=== PATIENT | female | born 1985 | race African-American/Black ===

== ENCOUNTER 2016-06-25 06:06 | Emergency (ER) | payer BC, MEDICAID ==
[~2016-06-25 06:06] MED LIST: FERR325T PO; NYST100084 TOPICAL; PROP40TA3 PO; SUMA50TA2 PO
[2016-06-25 06:09] VITALS: BP 144/87; PULSE 62; RESP 14; TEMP 98.6; O2SAT 97
[2016-06-25] MEDS ORDERED: SODIUM CHLOR 0.9% 1000 ML INJ 1,000 ML IV ONE (06:32)
--- NOTE | 2016-06-25 06:39 | PD ---
HPI Chief Complaint: Headache Time Seen by Provider: 06:32 Travel History International Travel<30 days: No Contact w/Intl Traveler<30days: No Traveled to known affect area: No History of Present Illness HPI 30 year-old female presents to the emergency department by private transportation for 2 days of migraine headache. Patient has history of migraines with associated headache and photophobia. Patient states she has been taking prescription propranolol and sumatriptan as directed. Patient states headache is persistent. Patient's had associated nausea and vomiting. Patient's had typical associated light sensitivity. Patient also notes some sensitivity to sound. Patient denies any sudden onset thunderclap or worst ever headache. Does report headache is longer in duration than normal. And reports that has not responded to her typical medication intervention. No neck pain or stiffness. No febrile illness. No sinus pressure drainage sore throat earache cough or shortness of breath. Patient has had nausea and vomiting. No reported hematemesis coffee-ground emesis melanoma hematochezia and no bilious emesis. Patient denies dysuria frequency or urgency. Last menstrual period was June 01 and normal for her. Patient is sexually active; is 2 para 1 AB 1; denies ; no report of abnormal vaginal bleeding or vaginal discharge. Patient does not associate her migraines with her menstrual cycle. Patient is unable to identify exacerbating or alleviating factors. Patient states headache is 9/10 intensity. PFSH Past Medical History Narrative Medical Migraine, ; denies tobacco use, denies alcohol use; nursing notes reviewed Cancer: No Cardiovascular Problems: No Diabetes: No Diminished Hearing: No Genitourinary: No Hiatal Hernia: No Musculoskeletal: No Neurologic: No Reproductive: No Respiratory: No Thyroid Disease: No ?: Unknown LMP: 06/01 : 2 Para: 0 Miscarriage: 1 Past Surgical History Section: Yes (x1) Gynecologic Surgery: Yes () Pacemaker: No Other Surgery: Yes Social History Alcohol Use: No Tobacco Use: No Substance Use: No Allergies-Medications (Allergen,Severity, Reaction): Coded Allergies: No Known Allergies (Verified , 06/25/16) Reported Meds & Prescriptions Reported Meds & Active Scripts Active Propranolol (Propranolol HCl) 40 Mg Tab 40 Mg PO Q12HR Sumatriptan (Sumatriptan Succinate) 50 Mg Tab 50 Mg PO DAILY PRN If a satisfactory response has not been obtained at 2 hours, a second dose may be administered Nystatin Topical 100,000 unit/gm Oint 1 Applic TOPICAL Q12HR Reported Ferrous Sulfate 325 Mg Tab 325 Mg PO DAILY Review of Systems Except as stated in HPI: all other systems reviewed are Neg General / Constitutional: No: Fever, Chills Eyes: Positive: Photophobia, No: Diploplia, Blurred Vision HENT: Positive: Headaches, No: Vertigo, Neck Stiffness, Neck Pain, Earache Cardiovascular: No: Chest Pain or Discomfort, Palpitations Respiratory: No: Shortness of Breath Gastrointestinal: Positive: Nausea, Vomiting, No: Abdominal Pain Genitourinary: No: Flank Pain Musculoskeletal: No: Myalgias, Arthralgias Skin: No Rash Neurologic: Positive: Headache, No: Weakness Psychiatric: No: Anxiety Endocrine: No: Heat Intolerance Hematologic/Lymphatic: No: Easy Bruising Physical Exam Narrative GENERAL: Well-built well-nourished female in no acute distress no respiratory distress. GCS 15. SKIN: Warm and dry. HEAD: Atraumatic. Normocephalic. EYES: Pupils equal and round. Extraocular muscles intact. No scleral icterus. No injection or drainage. ENT: No nasal bleeding or discharge. Mucous membranes pink and moist. NECK: Trachea midline. No JVD. No meningismus no nuchal rigidity. Supple. CARDIOVASCULAR: Regular rate and rhythm. RESPIRATORY: No accessory muscle use. Clear to auscultation. Breath sounds equal bilaterally. GASTROINTESTINAL: Abdomen soft, non-tender, nondistended. Hepatic and splenic margins not palpable. MUSCULOSKELETAL: Extremities without clubbing, cyanosis, or edema. No obvious deformities. NEUROLOGICAL: Awake and alert. No obvious cranial nerve deficits. Motor grossly within normal limits. Five out of 5 muscle strength in the arms and legs. Normal speech. PSYCHIATRIC: Appropriate mood and affect; insight and judgment normal. Data Data Last Documented VS Vital Signs Date Time Temp Pulse Resp B/P Pulse Ox O2 Delivery O2 Flow Rate FiO2 06/25/16 06:49 97 06/25/16 06:09 98.6 62 14 144/[address] Brain W/O Iv Contrast(Rout) (06/25/16 06:32) Ecg Monitoring (06/25/16 06:32) Iv Access Insert/Monitor (06/25/16 06:32) Oximetry (06/25/16 06:32) Prochlorperazine Inj (Compazine Inj) (06/25/16 06:45) Diphenhydramine Inj (Benadryl Inj) (06/25/16 06:45) Sodium Chlor 0.9% 1000 Ml Inj (Ns 1000 M (06/25/16 06:32) Ed Urine Pregnancytest Poc (06/25/16 06:32) Urinalysis - C+S If Indicated (06/25/16 06:32) MDM Medical Decision Making Medical Screen Exam Complete: Yes Emergency Medical Condition: Yes Medical Record Reviewed: Yes Interpretation(s) POC hcg: negative Differential Diagnosis Migraine headache, tension headache, vascular headache, ICH, dehydration, viral syndrome, UTI, Narrative Course IV access obtained; patient administered Compazine 10 mg IV Benadryl 25 mg IV normal saline bolus 1 L: [id number] hCG ordered along with urinalysis and CT brain noncontrast POC hcg: negative At 0700 care will be signed over to oncoming physician Dr. Abel follow-up of CT brain noncontrast and additional administration of Toradol Diagnosis Primary Impression: Cephalgia Additional Impression: H/O migraine Aye Henderson MD June 25, 2016 06:39
[2016-06-25] MEDS ORDERED: diphenhydrAMINE HCL 50 MG/ML VIAL IVP ONE (06:45)
[2016-06-25] MEDS ORDERED: PROCHLORPERAZINE INJ 10 MG/2 ML VIAL IVP ONE (06:45)
[2016-06-25 06:49] VITALS: O2SAT 97
[2016-06-25 07:12] LABS: BACTERIA, URINE RARE /hpf; BLOOD, URINE NEG (NEG); COMMENT (UR) CULT NOT INDICATED; CULTURE IF INDICATED CULT NOT INDICATED; GLUCOSE,URINE NEG (NEG); KETONE, URINE NEG (NEG); NITRITE,URINE NEG (NEG); PH, URINE 5.5 (5.0-8.5); SQUAMOUS EPITHELIAL CELL URINE 1 /hpf (0-5); URINE COLOR LIGHT-YELLOW (YELLW/STRAW)
--- NOTE | 2016-06-25 07:59 | RADRPT ---
EXAM DATE/TIME: 06/25/2016 07:41 [facility] COMPARISON: No previous studies available for comparison. INDICATIONS : Migraine headache. RADIATION DOSE: 34.83 CTDIvol (mGy) MEDICAL HISTORY : None SURGICAL HISTORY : None. ENCOUNTER: Initial ACUITY: 1 day PAIN SCALE: 10/10 LOCATION: Bilateral cranial TECHNIQUE: Multiple contiguous axial images were obtained of the head. Using automated exposure control and adj ustment of the mA and/or kV according to patient size, radiation dose was kept as low as reasonably a chievable to obtain optimal diagnostic quality images. FINDINGS: CEREBRUM: The ventricles are normal for age. No evidence of midline shift, mass lesion, hemorrhage or acute in farction. No extra-axial fluid collections are seen. POSTERIOR FOSSA: The cerebellum and brainstem are intact. The 4th ventricle is midline. The cerebellopontine angle i s unremarkable. EXTRACRANIAL: The visualized portion of the orbits is intact. SKULL: The calvaria is intact. No evidence of skull fracture. CONCLUSION: No acute intracranial disease. Rasheed Lyn MD on June 25, 2016 at 7:56 Board Certified Radiologist. This report was verified electronically.
[2016-06-25] MEDS ORDERED: NAPR500T PO (08:12)
--- NOTE | 2016-06-25 08:12 | PD ---
Data Data Last Documented VS Vital Signs Date Time Temp Pulse Resp B/P Pulse Ox O2 Delivery O2 Flow Rate FiO2 06/25/16 06:49 97 06/25/16 06:09 98.6 62 14 144/[address] Brain W/O Iv Contrast(Rout) (06/25/16 06:32) Ecg Monitoring (06/25/16 06:32) Iv Access Insert/Monitor (06/25/16 06:32) Oximetry (06/25/16 06:32) Prochlorperazine Inj (Compazine Inj) (06/25/16 06:45) Diphenhydramine Inj (Benadryl Inj) (06/25/16 06:45) Sodium Chlor 0.9% 1000 Ml Inj (Ns 1000 M (06/25/16 06:32) Ed Urine Pregnancytest Poc (06/25/16 06:32) Urinalysis - C+S If Indicated (06/25/16 06:32) Ketorolac Inj (Toradol Inj) (06/25/16 08:15) Labs Laboratory Tests Test 06/25/16 06:45 Urine Color LIGHT-YELLOW Urine Turbidity CLEAR Urine pH 5.5 Urine Specific [place] 1.010 Urine Protein NEG mg/dL Urine Glucose (UA) NEG mg/dL Urine Ketones NEG mg/dL Urine Occult Blood NEG Urine Nitrite NEG Urine Bilirubin NEG Urine Urobilinogen LESS THAN 2.0 MG/DL Urine Leukocyte Esterase NEG Urine RBC LESS THAN 1 /hpf Urine WBC LESS THAN 1 /hpf Urine Squamous Epithelial 1 /hpf Cells Urine Bacteria RARE /hpf Microscopic Urinalysis Comment CULT NOT INDICATED MDM Supervised Visit with JOE: No Narrative Course This is a 30-year-old female who presents to the emergency department with headache. She has a history of migraine and this headache is similar. She has a normal neurologic exam. CT of the head was reassuring. Patient feels much better after Compazine and Benadryl. Patient will be discharged home. Diagnosis Primary Impression: Cephalgia Additional Impression: H/O migraine Patient Instructions: General Instructions Additional Instruction: If you develop severe worsening headache, persistent vomiting, numbness, weakness, difficulty walking or difficulty talking return to the emergency department immediately. Sometimes in the emergency department we did not identify the cause of headaches. If you continued to have headaches it is very important that you followup with your primary care physician as you may need further testing with an MRI. Med/Other Pt SpecificInfo: Prescription(s) given Scripts Naproxen 500 Mg [id number] Mg PO BID PRN (PAIN SCALE 4 TO 10) #20 TAB Prov:Ruth Estrada MD 06/25/16 Disposition: 01 DISCHARGE HOME Condition: Stable Ruth Estrada MD June 25, 2016 08:12
[2016-06-25] MEDS ORDERED: KETOROLAC TROMETHAMINE 30 MG/ML (IVP) VIAL IVP ONE (08:15)
== END 2016-06-25 08:42 | disposition home or self-care (01) ==
LOC: NEPC 06:06
DX: R51 Headache (principal)
CPT/HCPCS: 70450; 81001; 84703; 96374; 99284; J1885